=== PATIENT | female | born 1975 | race American Indian/Alaskan Native ===

== ENCOUNTER 2016-11-27 09:38 | Emergency (ER) | payer OTHER ==
[2016-11-27 10:07] VITALS: BP 168/107
--- NOTE | 2016-11-27 10:12 | Emergency Department Report ---
Chief Complaint: Chest Pain Stated Complaint: CHEST PAIN Time Seen by Provider: 11/27/16 10:08 - HPI History of Present Illness: pt c/o BLE edema x 4 days - mildly improved with elevation PT reports chest pain that started today - ROS Review of Systems: + ble edema + sob + chest pain hx of hysterectomy - Exam Vital Signs: Vital Signs 11/27/16 10:03 Temperature 97.6 F Pulse Rate 86 Respiratory 20 Rate Blood Pressure 168/107 O2 Sat by Pulse 99 Oximetry Physical Exam: PT looks well, non toxic. steady gait maew, no focal weakness no acute resp distress MSE screening note: Focused history and physical exam performed. Due to findings the following was ordered: ekg, xr, labs ED Disposition for MSE Condition: Stable
--- NOTE | 2016-11-27 10:38 | XRay Report ---
CHEST 2 VIEWS INDICATION: Chest pain. COMPARISON: None similar. FINDINGS: PA and lateral chest radiographs demonstrate normal cardiomediastinal silhouette. Clear lungs. Intact bones. CONCLUSION: No acute disease in the chest. Thank you for the opportunity to participate in this patient's care.
[2016-11-27 11:25] LABS: Basophils % (Auto) 0.5 % (0.0-1.8); Eosinophils % (Auto) 2.2 % (0.0-4.3); Hematocrit 39.2 % (30.3-42.9); Hemoglobin 12.7 gm/dl (10.1-14.3); Mean Corpuscular HGB Conc 32 % (30-34); Mean Corpuscular Hemoglobin 28 pg (28-32); Mean Corpuscular Volume 86 fl (79-97); Platelet Count 301 K/mm3 (140-440); Red Blood Count 4.58 M/mm3 (3.65-5.03); Red Cell Distribution Width 14.8 % (13.2-15.2)
[2016-11-27 11:33] LABS: INR 0.92 (0.87-1.13)
[2016-11-27 11:34] LABS: Partial Thromboplastin Time 33.1 Sec. (24.2-36.6)
[2016-11-27 11:39] LABS: Alanine Aminotransferase 13 units/L (7-56); Albumin/Globulin Ratio 1.1 %; Alkaline Phosphatase 73 units/L (35-129); Anion Gap 17 mmol/L; Bilirubin,Total < 0.20 mg/dL (0.1-1.2); Blood Urea Nitrogen 9 mg/dL (7-17); Calcium 9.1 mg/dL (8.4-10.2); Carbon Dioxide 25 mmol/L (22-30); Chloride 104.2 mmol/L (98-107); Glucose 85 mg/dL (65-100); Potassium 4.6 mmol/L (3.6-5.0); Sodium 142 mmol/L (137-145); Total Protein 7.8 g/dL (6.3-8.2)
--- NOTE | 2016-11-27 17:13 | Emergency Department Report ---
ED Chest Pain HPI - General Chief Complaint: Chest Pain Stated Complaint: CHEST PAIN Time Seen by Provider: 11/27/16 10:08 Source: patient Mode of arrival: Ambulatory Limitations: No Limitations - History of Present Illness Initial Comments: 41-year-old female here with complaint of sharp chest pain that she noticed when she was laying in bed this morning. Patient states she's not had pain like this before she had no shortness of breath with it. Denies fevers chills cough. She complains of some mild bilateral peripheral edema in her legs. Otherwise no other complaints. -: Sudden Onset: awoke with symptoms Pain Location: left chest Pain Radiation: none Severity: mild Quality: sharp Improves With: nothing Worsens With: nothing re: denies: nausea, vomting, diaphoresis - Related Data Previous Rx's Medication Instructions Recorded Last Taken Type HYDROcodone/APAP 5-325 [[place] 1 each PO Q6HR PRN #14 tablet 09/15/15 Unknown Rx 5/325] Ibuprofen [Motrin] 600 mg PO Q8H PRN #30 tablet 11/27/16 Unknown Rx Allergies Allergy/AdvReac Type Severity Reaction Status Date / Time No Known Allergies Allergy Verified 09/15/15 08:14 Heart Score - HEART Score History: Slightly suspicious EKG: Normal Age: < 45 Risk factors: 1-2 risk factors Troponin: < normal limit HEART Score: 1 - Critical Actions Critical Actions: 0-3 pts:0.9-1.7%risk of adverse cardiac event.Candidate for discharge ED Review of Systems ROS: Stated complaint: CHEST PAIN Other details as noted in HPI Comment: All other systems reviewed and negative Constitutional: denies: chills, fever Eyes: denies: eye pain, eye discharge, vision change ENT: denies: ear pain, throat pain Respiratory: denies: cough, shortness of breath, wheezing Cardiovascular: chest pain. denies: palpitations Endocrine: no symptoms reported Gastrointestinal: denies: abdominal pain, nausea, diarrhea Genitourinary: denies: urgency, dysuria, discharge Musculoskeletal: other (peripheral edema). denies: back pain, joint swelling, arthralgia Skin: denies: rash, lesions Neurological: denies: headache, weakness, paresthesias Psychiatric: denies: anxiety, depression Hematological/Lymphatic: denies: easy bleeding, easy bruising ED Past Medical Hx - Past Medical History Previous Medical History?: Yes Hx Asthma: Yes Additional medical history: Vaginal delivery x 1 - Surgical History Past Surgical History?: Yes Additional Surgical History: hysterectomy. myomectomy x2 - Family History Family history: CAD/IN, hypertension - Social History Smoking Status: Never Smoker Substance Use Type: Alcohol, Prescribed - Medications Home Medications: Home Medications Medication Instructions Recorded Confirmed Last Taken Type HYDROcodone/APAP 5-325 [[place] 1 each PO Q6HR PRN #14 tablet 09/15/15 Unknown Rx 5/325] Ibuprofen [Motrin] 600 mg PO Q8H PRN #30 tablet 11/27/16 Unknown Rx ED Physical Exam - General Limitations: No Limitations General appearance: alert, in no apparent distress - Head Head exam: Present: atraumatic, normocephalic - Eye Eye exam: Present: normal appearance. Absent: scleral icterus, conjunctival injection - ENT ENT exam: Present: mucous membranes moist - Neck Neck exam: Present: normal inspection - Respiratory Respiratory exam: Present: normal lung sounds bilaterally. Absent: respiratory distress - Cardiovascular Cardiovascular Exam: Present: regular rate, normal rhythm. Absent: systolic murmur, diastolic murmur, rubs, gallop - GI/Abdominal GI/Abdominal exam: Present: soft, normal bowel sounds - Extremities Exam Extremities exam: Present: normal inspection - Back Exam Back exam: Present: normal inspection - Neurological Exam Neurological exam: Present: alert, oriented X3 - Psychiatric Psychiatric exam: Present: normal affect, normal mood - Skin Skin exam: Present: warm, dry, intact, normal color. Absent: rash ED Course Vital Signs 11/27/16 10:03 Temperature 97.6 F Pulse Rate 86 Respiratory 20 Rate Blood Pressure 168/107 O2 Sat by Pulse 99 Oximetry ED Medical Decision Making - Lab Data Result diagrams: 11/27/16 10:56 11/27/16 10:56 Laboratory Results - last 24 hr 11/27/16 11/27/16 11/27/16 10:56 10:56 10:56 WBC 6.0 RBC 4.58 Hgb 12.7 Hct 39.2 MCV 86 MCH 28 MCHC 32 RDW 14.8 Plt Count 301 Lymph % (Auto) 30.8 [place] % (Auto) 9.2 H Eos % (Auto) 2.2 Baso % (Auto) 0.5 Lymph # 1.8 [place] # 0.6 Eos # 0.1 Baso # 0.0 Seg Neutrophils % 57.3 Seg Neutrophils # 3.4 PT 12.3 INR 0.92 APTT 33.1 Sodium 142 Potassium 4.6 Chloride 104.2 Carbon Dioxide 25 Anion Gap 17 BUN 9 Creatinine 0.6 L Estimated GFR > 60 BUN/Creatinine Ratio 15.00 Glucose 85 Calcium 9.1 Total Bilirubin < 0.20 AST 21 ALT 13 Alkaline Phosphatase 73 Troponin T < 0.010 Total Protein 7.8 Albumin 4.0 Albumin/Globulin Ratio 1.1 11/27/16 15:41 WBC RBC Hgb Hct MCV MCH MCHC RDW Plt Count Lymph % (Auto) [place] % (Auto) Eos % (Auto) Baso % (Auto) Lymph # [place] # Eos # Baso # Seg Neutrophils % Seg Neutrophils # PT INR APTT Sodium Potassium Chloride Carbon Dioxide Anion Gap BUN Creatinine Estimated GFR BUN/Creatinine Ratio Glucose Calcium Total Bilirubin AST ALT Alkaline Phosphatase Troponin T < 0.010 Total Protein Albumin Albumin/Globulin Ratio - EKG Data -: EKG Interpreted by Me - EKG Data 11/27/16 17:13 Sinus 71 normal axis normal intervals no ST-T wave changes - Medical Decision Making 41-year-old female here with complaint of sharp chest pain started this morning. She's had some complaint of foot pain for the past 4 days. She describes it as bilateral foot pain. She is perked PERC rule negative. Chest x -ray labs and troponin all negative. She has heart score low risk. Plan to refer her to outpatient follow-up. Portions of this chart were dictated with dictation software. There may be dictation errors contained within this note. Critical care attestation.: If time is entered above; I have spent that time in minutes in the direct care of this critically ill patient, excluding procedure time. ED Disposition Clinical Impression: Chest pain Disposition: DC-01 TO HOME OR SELFCARE Is pt being admited?: No Condition: Stable Instructions: Chest Pain (ED) Prescriptions: Ibuprofen [Motrin] 600 mg PO Q8H PRN #30 tablet PRN Reason: Pain Referrals: VERITO MARTINO MD [Primary Care Provider] - 3-5 Days
== END 2016-11-27 18:22 | disposition home or self-care (01) ==
LOC: ED 09:38
DX: R07.9 Chest pain, unspecified (principal); J45.909 Unspecified asthma, uncomplicated
CPT/HCPCS: 36415; 71020; 80053; 83880; 84484; 85025; 85610; 85730; 93005; 93010

== ENCOUNTER 2017-07-08 08:31 | Outpatient (CLI) | payer OTHER ==
--- NOTE | 2017-07-08 14:34 | Mammography Report ---
BILATERAL DIGITAL SCREENING MAMMOGRAM with CAD: 07/08/17 08:31:00 CLINICAL: Routine screening. COMPARISON:06/15/16 FINDINGS: The breasts are heterogeneously dense, which may obscure small masses. No mass, architectural distortion or suspicious calcifications. IMPRESSION: No mammographic evidence of malignancy. BI-RADS CATEGORY: 1 - - Negative RECOMMENDATION: Routine mammographic screening in one year. COMMENT: Patient follow-up letters are generated by our [employer] application.
== END 2017-07-08 08:32 | disposition home or self-care (01) ==
LOC: SPVWC 08:31
PROVIDERS: ATTEND Hospitalist
DX: Z12.31 Encounter for screening mammogram for malignant neoplasm of breast (principal)
CPT/HCPCS: 77067

== ENCOUNTER 2017-11-27 18:54 | Emergency (ER) | payer OTHER ==
[2017-11-27 19:31] VITALS: BP 157/102
[2017-11-27] MEDS ORDERED: FLEXERIL PO ONE (20:39)
[2017-11-27] MEDS ORDERED: TORADOL IM ONE (20:39)
--- NOTE | 2017-11-27 21:23 | Emergency Department Report ---
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 and felt strain and low back now with burning aching radiating to left leg pain is rated at 6/10 exacerbated by movement reaching bending twisting is no numbness no tingling no paralysis no loss of decrease in bowel or bladder function patient remains M to her baseline per patient MD Complaint: back pain, back injury Onset/Timin -: days(s) Similar Symptoms Previously: No Place: work Radiation: left leg Severity: moderate Severity scale (0 -10): 6 Quality: burning Consistency: intermittent Worsens With: other (rest ) Context: turning/twisting, bending Associated Symptoms: denies: confusion, weakness, chest pain, numbness, difficulty walking, cough, difficulty urinating, diaphoresis, incontinence, fever/chills, constipation, headaches, abdominal pain, loss of appetite, malaise , nausea/vomiting, rash, seizure, shortness of breath, syncope - Related Data Previous Rx's Medication Instructions Recorded Last Taken Type HYDROcodone/APAP 5-325 [[place] 1 each PO Q6HR PRN #14 tablet 09/15/15 Unknown Rx 5/325] Ibuprofen [Motrin] 600 mg PO Q8H PRN #30 tablet 11/27/16 Unknown Rx Cyclobenzaprine [Flexeril] 10 mg PO TID PRN #30 tablet 11/27/17 Unknown Rx Menthol/Camphor [[place] 1 applicatio TP TID PRN #1 tube 11/27/17 Unknown Rx Ointment] Naproxen 500 mg PO BID PRN #30 tablet 11/27/17 Unknown Rx Allergies Allergy/AdvReac Type Severity Reaction Status Date / Time No Known Allergies Allergy Verified 09/15/15 08:14 ED Review of Systems ROS: Stated complaint: LOWER BACK PAIN/ SOB Other details as noted in HPI Constitutional: denies: chills, fever Eyes: denies: eye pain, eye discharge, vision change ENT: denies: ear pain, throat pain Respiratory: denies: cough, shortness of breath, wheezing Cardiovascular: denies: chest pain, palpitations Endocrine: no symptoms reported Gastrointestinal: as per HPI Genitourinary: denies: urgency, dysuria, discharge Musculoskeletal: back pain, myalgia Skin: denies: rash, lesions Neurological: denies: headache, weakness, paresthesias Psychiatric: denies: anxiety, depression Hematological/Lymphatic: denies: easy bleeding, easy bruising ED Past Medical Hx - Past Medical History Hx Hypertension: Yes Hx Asthma: Yes Additional medical history: Vaginal delivery x 1 - Surgical History Additional Surgical History: hysterectomy. myomectomy x2 - Social History Smoking Status: Never Smoker Substance Use Type: Alcohol - Medications Home Medications: Home Medications Medication Instructions Recorded Confirmed Last Taken Type HYDROcodone/APAP 5-325 [[place] 1 each PO Q6HR PRN #14 tablet 09/15/15 Unknown Rx 5/325] Ibuprofen [Motrin] 600 mg PO Q8H PRN #30 tablet 11/27/16 Unknown Rx Cyclobenzaprine [Flexeril] 10 mg PO TID PRN #30 tablet 11/27/17 Unknown Rx Menthol/Camphor [[place] 1 applicatio TP TID PRN #1 tube 11/27/17 Unknown Rx Ointment] Naproxen 500 mg PO BID PRN #30 tablet 11/27/17 Unknown Rx ED Physical Exam - General Limitations: No Limitations General appearance: alert, in no apparent distress - Head Head exam: Present: atraumatic, normocephalic - Eye Eye exam: Present: normal appearance - ENT ENT exam: Present: mucous membranes moist - Neck Neck exam: Present: normal inspection, full ROM. Absent: tenderness, lymphadenopathy, thyromegaly - Respiratory Respiratory exam: Present: normal lung sounds bilaterally. Absent: respiratory distress, wheezes, stridor, chest wall tenderness - Cardiovascular Cardiovascular Exam: Present: regular rate, normal rhythm, normal heart sounds. Absent: systolic murmur, diastolic murmur, rubs, gallop - GI/Abdominal GI/Abdominal exam: Present: soft, normal bowel sounds. Absent: tenderness, rebound, bruit, hernia - Rectal Rectal exam: Present: deferred - Extremities Exam Extremities exam: Present: normal inspection, full ROM, normal capillary refill. Absent: tenderness, pedal edema, joint swelling, calf tenderness - Back Exam Back exam: Present: tenderness, muscle spasm, paraspinal tenderness. Absent: CVA tenderness (R), CVA tenderness (L), vertebral tenderness, rash noted - Expanded Back Exam Expanded Back exam: Absent: saddle anesthesia Back exam: Sciatic Notch Tenderness: Left, Positive Straight Leg Raise: Left, Negative Straight Leg Raising: Right - Neurological Exam Neurological exam: Present: alert, oriented X3, CN II-XII intact, normal gait, reflexes normal - Expanded Neurological Exam Expanded Patient oriented to: Present: person, place, time Speech: Present: receptive aphasia Sensory exam: Lower Extremity Light Touch: Normal, Lower Extremity Pin Prick: Normal, Lower Extremity Temperature: Normal, LE 2 Point Discrimination: Normal Motor strength exam: RUE: 5, LUE: 5, RLE: 5, LLE: 5 DTR: knee (R): 2+, knee (L): 2+, ankle (R): 2+, ankle (L): 2+ Best Eye Response ([place]): (4) open spontaneously Best Motor Response ([place]): (6) obeys commands Best Verbal Response ([place]): (5) oriented [place] Total: 15 - Psychiatric Psychiatric exam: Present: normal affect, normal mood - Skin Skin exam: Present: warm, dry, intact, normal color. Absent: rash ED Course Vital Signs 11/27/17 19:27 Temperature 98.5 F Pulse Rate 79 Respiratory 19 Rate Blood Pressure 157/102 [Right] O2 Sat by Pulse 100 Oximetry ED Medical Decision Making - Medical Decision Making l this is a low back strain ow back strain improved with NSAIDs and muscle relaxant given in ED, no symptoms of cauda equina plan: NSAIDs, muscle relaxants moist heat therapy back exercises and follow with PCP N2 to 3 days patient verbalizes understanding and agreement with discharge plan patient was DC'd to home in stable condition at this time Critical care attestation.: If time is entered above; I have spent that time in minutes in the direct care of this critically ill patient, excluding procedure time. ED Disposition Clinical Impression: Low back strain Qualifiers: Encounter type: initial encounter Qualified Code(s): S39.012A - Strain of muscle, fascia and tendon of lower back, initial encounter Disposition: DC-01 TO HOME OR SELFCARE Is pt being admited?: No Does the pt Need Aspirin: No Condition: Good Instructions: Low Back Strain (ED), Core Strengthening Exercises (GEN) Prescriptions: Cyclobenzaprine [Flexeril] 10 mg PO TID PRN #30 tablet PRN Reason: Muscle Spasm Menthol/Camphor [[place] Ointment] 1 applicatio TP TID PRN #1 tube PRN Reason: pain Naproxen 500 mg PO BID PRN #30 tablet PRN Reason: pain Referrals: PRIMARY CARE,MD [Primary Care Provider] - 3-5 Days Forms: Work/School Release Form(ED) Time of Disposition: 21:29
== END 2017-11-27 21:40 | disposition home or self-care (01) ==
LOC: ED 18:54
DX: S39.012A Strain of muscle, fascia and tendon of lower back, initial encounter (principal); I10 Essential (primary) hypertension; J45.909 Unspecified asthma, uncomplicated; Z90.710 Acquired absence of both cervix and uterus; X50.1XXA Overexertion from prolonged static or awkward postures, initial encounter; Y93.89 Activity, other specified; Y99.0 Civilian activity done for income or pay; Y92.69 Other specified industrial and construction area as the place of occurrence of the external cause
CPT/HCPCS: 96372; 99282; J1885

== ENCOUNTER 2018-09-18 16:16 | Emergency (ER) | payer OTHER ==
--- NOTE | 2018-09-18 16:49 | Event Note ---
ED Screening Note ED Screening Note: pt presents with left sided flank pain and LLQ pain that began last night states she is having N/V no fever never had before PMHx HTN and asthma threw her medication back up non smoker +occ drinker no drug use This initial assessment/diagnostic orders/clinical plan/treatment(s) is/are subject to change based on patients health status, clinical progression and re- assessment by fellow clinical providers in the ED. Further treatment and workup at subsequent clinical providers discretion. Patient/guardian urged not to elope from the ED as their condition may be serious if not clinically assessed and managed. Initial orders include:
[2018-09-18] MEDS ORDERED: ZOFRAN ODT PO ONE (16:50)
[2018-09-18 17:18] LABS: Basophils # (Auto) 0.1 K/mm3 (0.0-0.1); Basophils % (Auto) 0.5 % (0.0-1.8); Hematocrit 43.1 % (30.3-42.9); Hemoglobin 14.2 gm/dl (10.1-14.3); Lymphocytes # (Auto) 1.1 K/mm3 (1.2-5.4); Lymphocytes % (Auto) 9.5 % (13.4-35.0); Mean Corpuscular HGB Conc 33 % (30-34); Mean Corpuscular Volume 86 fl (79-97); Monocytes # (Auto) 0.4 K/mm3 (0.0-0.8); Monocytes % (Auto) 3.6 % (0.0-7.3); Red Blood Count 5.04 M/mm3 (3.65-5.03); Red Cell Distribution Width 14.8 % (13.2-15.2)
[2018-09-18 17:47] LABS: Platelet Count 350 K/mm3 (140-440)
--- NOTE | 2018-09-18 17:48 | Cat Scan Report ---
PROCEDURE: CT ABDOMEN PELVIS WO CON TECHNIQUE: Axial images of the abdomen and pelvis obtained without intravenous or oral contrast. Sagi ttal and coronal reconstructions also obtained HISTORY: left flank, LLQ pain COMPARISONS: No priors FINDINGS: Images through the lung bases show no evidence of airspace consolidation or pleural effusions. Unenhanced hepatic and splenic parenchyma are within normal limits. Adrenals and pancreas are within normal limits Gallbladder within normal limits. No evidence of urolithiasis or obstructive uropathy. No evidence of bowel obstruction or free intraperitoneal air. No colitis or diverticulitis. Small fat-containing periumbilical ventral hernia. Normal appendix. There is a rounded soft tissue mass in the left side of the pelvis measuring approximately 4.2 cm in diameter. Urinary bladder is within normal limits. Evaluation is limited without intravenous and oral contrast. Small nonspecific inguinal nodes. IMPRESSION: 4.2 cm rounded soft tissue mass in the left side of the pelvis. This could represent mass of ovarian origin or caron mass. Recommend further evaluation with follow-u p contrast enhanced CT and correlation with pelvic ultrasound. No evidence of urolithiasis or obstructive uropathy. . This document is electronically signed by Sagar Walsh MD., September 18 2018 05:46:48 PM ET
[2018-09-18 18:11] LABS: Alanine Aminotransferase 14 units/L (7-56); Albumin 4.8 g/dL (3.9-5); BUN/Creatinine Ratio 11; Blood Urea Nitrogen 8 mg/dL (7-17); Calcium 10.1 mg/dL (8.4-10.2); Hemolysis Index 15
[2018-09-18] MEDS ORDERED: MORPHINE IV ONE (18:23)
[2018-09-18] MEDS ORDERED: ZOFRAN IV ONE (18:23)
[2018-09-18] MEDS ORDERED: NACL 0.9% 1000 ML 1,000 ML IV ONE (18:23)
[2018-09-18 18:26] LABS: Bilirubin,Urine NEG (Negative); Blood,Urine NEG (Negative); Color,Urine Yellow (Yellow); Mucus,Urine 2+ /HPF; Urobilinogen,Urine < 2.0 mg/dL (<2.0)
--- NOTE | 2018-09-18 18:45 | Emergency Department Report ---
ED Female HPI - General Chief complaint: Abdominal Pain Stated complaint: RT SIDE SHARP PAIN/VOMIT/CHILLS Time Seen by Provider: 09/18/18 16:47 Source: patient Mode of arrival: Ambulatory Limitations: No Limitations - History of Present Illness Initial comments: This is a 43-year-old female nontoxic, well nourished in appearance, no acute signs of distress presents to the ED with c/o of nausea and vomiting and left flank pain with radiation to left pelvic area 1 day. Patient describes vomiting as food content and yellow gastric acid. Patient describes flank pain as cramping and aching with level of 3/10. Patient denies chest pain, short of breath, fever, chills, headache, stiff neck, numbness or tingling. Patient denies any diarrhea or constipation. Patient denies any recent travels. Patient denies any allergies or significant PMH. MD Complaint: pelvic pain, other (left flank) -: days(s) (1) Severity: mild Severity scale (0 -10): 3 Quality: cramping, aching Consistency: constant Improves with: none Worsens with: none Associated Symptoms: nausea/vomiting. denies: vaginal discharge, vaginal bleeding, abdominal pain, fever/chills, headaches, loss of appetite, dysuria, hematuria, rash, seizure, shortness of breath, syncope, weakness - Related Data Previous Rx's Medication Instructions Recorded Last Taken Type HYDROcodone/APAP 5-325 [[place] 1 each PO Q6HR PRN #14 tablet 09/15/15 Unknown Rx 5/325] Ibuprofen [Motrin] 600 mg PO Q8H PRN #30 tablet 11/27/16 Unknown Rx Cyclobenzaprine [Flexeril] 10 mg PO TID PRN #30 tablet 11/27/17 Unknown Rx Menthol/Camphor [[place] 1 applicatio TP TID PRN #1 tube 11/27/17 Unknown Rx Ointment] Naproxen 500 mg PO BID PRN #30 tablet 11/27/17 Unknown Rx Acetaminophen/Codeine [Tylenol 1 tab PO Q6H PRN #12 tab 09/18/18 Unknown Rx /Codeine # 3 tab] Ondansetron [Zofran Odt] 4 mg PO Q8HR PRN #20 tab.rapdis 09/18/18 Unknown Rx Allergies Allergy/AdvReac Type Severity Reaction Status Date / Time No Known Allergies Allergy Verified 09/18/18 16:18 ED Review of Systems ROS: Stated complaint: RT SIDE SHARP PAIN/VOMIT/CHILLS Other details as noted in HPI Constitutional: denies: chills, fever Eyes: denies: eye pain, eye discharge, vision change ENT: denies: ear pain, throat pain Respiratory: denies: cough, shortness of breath, wheezing Cardiovascular: denies: chest pain, palpitations Endocrine: no symptoms reported Gastrointestinal: nausea, vomiting, other (left pelvic pain). denies: abdominal pain, diarrhea Genitourinary: denies: urgency, dysuria, discharge Musculoskeletal: denies: back pain, joint swelling, arthralgia Skin: denies: rash, lesions Neurological: denies: headache, weakness, paresthesias Psychiatric: denies: anxiety, depression Hematological/Lymphatic: denies: easy bleeding, easy bruising ED Past Medical Hx - Past Medical History Hx Hypertension: Yes Hx Asthma: Yes Additional medical history: Vaginal delivery x 1 - Surgical History Additional Surgical History: hysterectomy. myomectomy x2 - Social History Smoking Status: Never Smoker Substance Use Type: None - Medications Home Medications: Home Medications Medication Instructions Recorded Confirmed Last Taken Type HYDROcodone/APAP 5-325 [[place] 1 each PO Q6HR PRN #14 tablet 09/15/15 Unknown Rx 5/325] Ibuprofen [Motrin] 600 mg PO Q8H PRN #30 tablet 11/27/16 Unknown Rx Cyclobenzaprine [Flexeril] 10 mg PO TID PRN #30 tablet 11/27/17 Unknown Rx Menthol/Camphor [[place] 1 applicatio TP TID PRN #1 tube 11/27/17 Unknown Rx Ointment] Naproxen 500 mg PO BID PRN #30 tablet 11/27/17 Unknown Rx Acetaminophen/Codeine [Tylenol 1 tab PO Q6H PRN #12 tab 09/18/18 Unknown Rx /Codeine # 3 tab] Ondansetron [Zofran Odt] 4 mg PO Q8HR PRN #20 tab.rapdis 09/18/18 Unknown Rx ED Physical Exam - General Limitations: No Limitations General appearance: alert, in no apparent distress - Head Head exam: Present: atraumatic, normocephalic - Eye Eye exam: Present: normal appearance - Neck Neck exam: Present: normal inspection, full ROM. Absent: tenderness, meningismus, lymphadenopathy - Respiratory Respiratory exam: Present: normal lung sounds bilaterally. Absent: respiratory distress, wheezes, rales, rhonchi, stridor, chest wall tenderness, accessory muscle use, decreased breath sounds, prolonged expiratory - Cardiovascular Cardiovascular Exam: Present: regular rate, normal rhythm, normal heart sounds. Absent: bradycardia, tachycardia, irregular rhythm, systolic murmur, diastolic murmur, rubs, gallop - GI/Abdominal GI/Abdominal exam: Present: soft, tenderness (left pelvic area), normal bowel sounds. Absent: distended, guarding, rebound, rigid, diminished bowel sounds - Expanded GI/Abdominal Exam Expanded GI/Abdominal exam: Absent: psoas sign, Orellana's sign, Rovsing's sign, tenderness at [place]'s [place], ascites - Extremities Exam Extremities exam: Present: normal inspection, full ROM - Back Exam Back exam: Present: normal inspection, full ROM. Absent: tenderness, CVA tenderness (R), CVA tenderness (L), muscle spasm, paraspinal tenderness, vertebral tenderness, rash noted - Neurological Exam Neurological exam: Present: alert, oriented X3, normal gait - Psychiatric Psychiatric exam: Present: normal affect, normal mood - Skin Skin exam: Present: warm, dry, intact, normal color. Absent: rash ED Course Vital Signs 09/18/18 09/18/18 09/18/18 17:14 21:37 21:42 Temperature 98.1 F 98.8 F Pulse Rate 74 63 Respiratory 20 18 18 Rate Blood Pressure 162/91 Blood Pressure 133/87 [Right] O2 Sat by Pulse 100 98 98 Oximetry - Reevaluation(s) Reevaluation #1: 09/18/18 18:51 Patient is speaking in full sentences with no signs of distress noted. - Consultations Consultation #1: 09/18/18 18:52 Patient has been consulted with Jimena Stewart about patient history, physical exam, and labs/CT results and agrees to ED plan of care with US exam. ED Medical Decision Making - Lab Data Result diagrams: 09/18/18 16:58 09/18/18 16:58 - Medical Decision Making This is a 43-year-old male that presents with left ovarian cyst. Patient is stable and was examined by me. There is no abdominal tenderness. Negative signs of symptoms of appendicitis. Labs obtained. UA obtained. CT and US of abdomen obtained and dictated by the radiologist. Patient is notified of the report with no questions noted by the patient. Patient was consulted with Dr. Prince which agrees for discharge instructions and treatment with follow-up. Vital signs are stable prior to discharge. Patient received medical treatment in the ED which patient stated symptoms has resovled and subsided. Was instructed note to operate any machinery due to possible drowsiness and stated someone will drive the patient home. A by mouth challenge has been obtained and patient tolerated well with no nausea vomiting. Patient was notified of strict precatuions of appendictis symptoms and to return to the ED if symptoms occurs as soon as possible. Patient was also instructed to Follow-up with a primary care doctor in 3-5 days or if symptoms worsen and continue return to emergency room as soon as possible. At time of discharge, the patient does not seem toxic or ill in appearance. No acute signs of distress noted. Patient agrees to discharge treatment plan of care. No further questions noted by the patient. Critical care attestation.: If time is entered above; I have spent that time in minutes in the direct care of this critically ill patient, excluding procedure time. ED Disposition Clinical Impression: Left ovarian cyst, Nausea & vomiting Disposition: DC-01 TO HOME OR SELFCARE Is pt being admited?: No Does the pt Need Aspirin: No Condition: Stable Instructions: Abdominal Pain (ED), Ovarian Cyst (ED), Acute Nausea and Vomiting (ED) Additional Instructions: Follow-up with a primary care/[facility] doctor in 3-5 days or if symptoms worsen and continue return to emergency room as soon as possible. Prescriptions: Acetaminophen/Codeine [Tylenol /Codeine # 3 tab] 1 tab PO Q6H PRN #12 tab PRN Reason: Pain , Severe (7-10) Ondansetron [Zofran Odt] 4 mg PO Q8HR PRN #20 tab.rapdis PRN Reason: Nausea Referrals: TORY VALENTINE MD [Primary Care Provider] - 3-5 Days PRIMARY CAREMD [Referring] - 3-5 Days STACEY PRASAD MD [Staff Physician] - 3-5 Days [facility] [Provider Group] - 3-5 Days Forms: Work/School Release Form(ED)
--- NOTE | 2018-09-18 20:34 | Ultrasound Report ---
PROCEDURE: US TRANSVAGINAL TECHNIQUE: Real-time transvaginal sonography in multiple planes of the pelvis was performed with oksana ge documentation. HISTORY: pelvic mass COMPARISONS: None . FINDINGS: UTERUS Is not visualized consistent with hysterectomy RIGHT Ovary: 2.6 x 1.9 x 2.5 cm. Appearance: No obvious focal lesion. LEFT Ovary: 4.8 x 3.5 x 3.9 cm. Appearance: No obvious focal lesion. Pelvic fluid: None. IMPRESSION: Left ovary appears enlarged. CT scan with contrast may be recommended for further evalua tion.. This document is electronically signed by Iker Philippe MD., September 18 2018 08:31:59 PM ET
[2018-09-18] MEDS ORDERED: REGLAN IV ONE (20:38)
--- NOTE | 2018-09-18 20:45 | Ultrasound Report ---
PROCEDURE: US PELVIC COMPLETE TECHNIQUE: Real-time transabdominal sonography in multiple planes of pelvis was performed with image documentation. HISTORY: pelvic mass COMPARISONS: None . FINDINGS: UTERUS Nonvisualized consistent with hysterectomy RIGHT Ovary: 2.6 x 1.9 x 2.5 cm. Appearance: No focal lesion noted. LEFT Ovary: 4.8 x 3.5 x 3.9 cm. Appearance: No focal lesion is noted. Pelvic fluid: None. Other: None. IMPRESSION: Left ovary appears enlarged. CT pelvis with contrast is recommended for further evaluati on.. This document is electronically signed by Iker Philippe MD., September 18 2018 08:43:42 PM ET
[2018-09-18 21:42] VITALS: BP 133/87
--- NOTE | 2018-09-18 22:52 | Cat Scan Report ---
PROCEDURE: CT ABDOMEN PELVIS W CON TECHNIQUE: Computerized axial tomography of the abdomen and pelvis was performed after the IV inject ion of iodinated nonionic contrast. CT DOSE LENGTH PRODUCT: mGycm HISTORY: pelvic pain with abdominal US/CT COMPARISONS: September 18, 2018 . FINDINGS: Liver, spleen, pancreas and bilateral adrenal glands are within normal limits. Bilateral kidneys demo nstrate uniform enhancement without hydronephrosis. Aorta is of normal caliber. Urinary bladder is em pty. There is no free fluid or free air. Gallbladder is unremarkable. Small bowel loops are within no rmal limits. Appendix is normal. A 4.9 x 4.1 cm hypodense lesion is noted in the left adnexal region which is stable since the prior study. It does not seem to demonstrate any enhancement. Vertebral hei ght is normal. A small uncomplicated umbilical hernia is noted. IMPRESSION: A left adnexal cystic lesion fails to demonstrate any enhancement. It most likely represe nts a hemorrhagic cyst. This document is electronically signed by Iker Philippe MD., September 18 2018 10:50:58 PM ET
== END 2018-09-18 23:40 | disposition home or self-care (01) ==
LOC: ED 16:16
DX: N83.202 Unspecified ovarian cyst, left side (principal); I10 Essential (primary) hypertension; J45.909 Unspecified asthma, uncomplicated; Z90.710 Acquired absence of both cervix and uterus; Z79.899 Other long term (current) drug therapy
CPT/HCPCS: 36415; 74176; 74177; 76830; 76856; 80053; 81001; 82805; 83690; 85025; 96361; 96374; 96375; 99284; J2270; J2405; J2765; J7030; Q9967; Q0162

== ENCOUNTER 2020-05-23 08:04 | Emergency (ER) | payer OTHER ==
[2020-05-23 08:52] VITALS: BP 153/82
--- NOTE | 2020-05-23 10:26 | Emergency Department Report ---
ED Lower Extremity HPI - General Chief Complaint: Extremity Injury, Lower Stated Complaint: BACK/KNEE PAIN Time Seen by Provider: 05/23/20 09:28 Source: patient Mode of arrival: Ambulatory Limitations: No Limitations - History of Present Illness Initial Comments: 45-year-old pleasant F Spanish female that emerge department complaining of left knee pain which has been an issue since November 2019 of an unknown etiology she was initially seen and evaluated at an urgent care where x-rays were taken advised that she had osteoarthritis and ostial porosis the cause complication to the knee but not yet been able to to follow-up with a primary care doctor as her at her doctor has spontaneously closed and she is in search for a new PCP. However during this time her knee pain has continued to progressively worsening since since the onset with no concomitant injuries. Pain is dull and throbbing and worse with palpation and range of motion and ambulation. MD Complaint: knee injury - Related Data Previous Rx's Medication Instructions Recorded Last Taken Type HYDROcodone/APAP 5-325 [[place] 1 each PO Q6HR PRN #14 tablet 09/15/15 Unknown Rx 5/325] Ibuprofen [Motrin] 600 mg PO Q8H PRN #30 tablet 11/27/16 Unknown Rx Cyclobenzaprine [Flexeril] 10 mg PO TID PRN #30 tablet 11/27/17 Unknown Rx Menthol/Camphor [[place] 1 applicatio TP TID PRN #1 tube 11/27/17 Unknown Rx Ointment] Naproxen 500 mg PO BID PRN #30 tablet 11/27/17 Unknown Rx Acetaminophen/Codeine [Tylenol 1 tab PO Q6H PRN #12 tab 09/18/18 Unknown Rx /Codeine # 3 tab] Ondansetron [Zofran Odt] 4 mg PO Q8HR PRN #20 tab.rapdis 09/18/18 Unknown Rx predniSONE [Deltasone] 20 mg PO QDAY #5 tab 05/23/20 Unknown Rx traMADoL [Ultram] 50 mg PO Q6HR PRN #20 tablet 05/23/20 Unknown Rx Allergies Allergy/AdvReac Type Severity Reaction Status Date / Time No Known Allergies Allergy Verified 09/18/18 16:18 ED Review of Systems ROS: Stated complaint: BACK/KNEE PAIN Other details as noted in HPI Comment: All other systems reviewed and negative ED Past Medical Hx - Past Medical History Hx Hypertension: Yes Hx Asthma: Yes Additional medical history: Vaginal delivery x 1 - Surgical History Additional Surgical History: hysterectomy. myomectomy x2 - Social History Smoking Status: Never Smoker Substance Use Type: None - Medications Home Medications: Home Medications Medication Instructions Recorded Confirmed Last Taken Type HYDROcodone/APAP 5-325 [[place] 1 each PO Q6HR PRN #14 tablet 09/15/15 Unknown Rx 5/325] Ibuprofen [Motrin] 600 mg PO Q8H PRN #30 tablet 11/27/16 Unknown Rx Cyclobenzaprine [Flexeril] 10 mg PO TID PRN #30 tablet 11/27/17 Unknown Rx Menthol/Camphor [[place] 1 applicatio TP TID PRN #1 tube 11/27/17 Unknown Rx Ointment] Naproxen 500 mg PO BID PRN #30 tablet 11/27/17 Unknown Rx Acetaminophen/Codeine [Tylenol 1 tab PO Q6H PRN #12 tab 09/18/18 Unknown Rx /Codeine # 3 tab] Ondansetron [Zofran Odt] 4 mg PO Q8HR PRN #20 tab.rapdis 09/18/18 Unknown Rx predniSONE [Deltasone] 20 mg PO QDAY #5 tab 05/23/20 Unknown Rx traMADoL [Ultram] 50 mg PO Q6HR PRN #20 tablet 05/23/20 Unknown Rx ED Physical Exam - General Limitations: No Limitations General appearance: alert, in no apparent distress - Head Head exam: Present: atraumatic, normocephalic - Eye Eye exam: Present: normal appearance, PERRL, EOMI Pupils: Present: normal accommodation - ENT ENT exam: Present: normal exam, normal orophraynx, mucous membranes moist - Neck Neck exam: Present: normal inspection - Respiratory Respiratory exam: Present: normal lung sounds bilaterally. Absent: respiratory distress - Cardiovascular Cardiovascular Exam: Present: regular rate, normal rhythm. Absent: systolic murmur, diastolic murmur, rubs, gallop - GI/Abdominal GI/Abdominal exam: Present: soft, normal bowel sounds - Extremities Exam Extremities exam: Present: normal inspection, tenderness - Expanded Lower Extremity Exam Left Knee exam: Present: tenderness, swelling, pain w/ pronation/supination, pain/laxity with valgus. Absent: abrasion, laceration, ecchymosis, deformity, effusion, posterior draw sign, pain/laxity with varus Lower Leg exam: Present: normal inspection Ankle exam: Present: normal inspection Foot/Toe exam: Present: normal inspection Neuro vascular tendon exam: Present: no vascular compromise. Absent: abnormal 2-point discrimination, decreased fine/light touch, foot drop - Back Exam Back exam: Present: normal inspection. Absent: CVA tenderness (R), CVA tenderness (L) - Neurological Exam Neurological exam: Present: alert, oriented X3, CN II-XII intact - Psychiatric Psychiatric exam: Present: normal affect, normal mood - Skin Skin exam: Present: warm, dry, intact, normal color. Absent: rash ED Course Vital Signs 05/23/20 08:51 Temperature 98.6 F Pulse Rate 81 Respiratory 18 Rate Blood Pressure 153/82 O2 Sat by Pulse 97 Oximetry Critical care attestation.: If time is entered above; I have spent that time in minutes in the direct care of this critically ill patient, excluding procedure time. ED Disposition Clinical Impression: Left knee pain, Swelling of knee joint, left Disposition: DC-01 TO HOME OR SELFCARE Is pt being admited?: No Does the pt Need Aspirin: No Condition: Stable Prescriptions: predniSONE [Deltasone] 20 mg PO QDAY #5 tab traMADoL [Ultram] 50 mg PO Q6HR PRN #20 tablet PRN Reason: Pain Referrals: VERITO MARTINO MD [Primary Care Provider] - 3-5 Days DANILO LAYTON MD [Staff Physician] - 3-5 Days ERICA MONTANEZ MD [Staff Physician] - 3-5 Days
== END 2020-05-23 11:58 | disposition home or self-care (01) ==
LOC: ED 08:04
DX: M25.562 Pain in left knee (principal); M25.462 Effusion, left knee; I10 Essential (primary) hypertension; J45.909 Unspecified asthma, uncomplicated; Z90.710 Acquired absence of both cervix and uterus; Z98.890 Other specified postprocedural states; Z79.1 Long term (current) use of non-steroidal anti-inflammatories (NSAID); Z79.899 Other long term (current) drug therapy
CPT/HCPCS: 99282